=== PATIENT | female | born 1980 | race Caucasian/White ===

== ENCOUNTER 2019-11-08 00:16 | Emergency (ER) | payer SELFPAY ==
[2019-11-08] MEDS ORDERED: Acetaminophen/oxyCODONE 325-5 MG Tab PO ONE (00:17)
[2019-11-08] MEDS ORDERED: oxyCODONE 5 MG Tab PO ONE (00:32)
--- NOTE | 2019-11-08 00:39 | EDM.PDOC ---
ED HPI GENERAL MEDICAL PROBLEM - General Chief Complaint: ENT Problem Stated Complaint: TOOTH PAIN Time Seen by Provider: 11/08/19 00:20 Source of Information: Reports: Patient, Old Records History Limitations: Reports: No Limitations - History of Present Illness INITIAL COMMENTS - FREE TEXT/NARRATIVE: 39 yo female had a root canal Wednesday 11/07 in her dentist's office. When she left her mouth/face was numb. By the time it wore off she was in a lot of pain but the dentist's office was closed and there was no emergency number. She has tried ibuprofen, acetaminophen and tramadol without relief. She had been on antibiotics before the root canal procedure. Onset: Gradual Onset Date: 11/07/19 Duration: Hour(s):, Constant Location: Reports: Face (R cheek area/upper premolar) Quality: Reports: Ache Severity: Severe Improves with: Reports: Medication Worsens with: Reports: Other (cold/chewing) Context: Reports: Other (root canal) Associated Symptoms: Reports: Other (slight R cheek puffiness) Treatments MDS COORDINATOR: Reports: Acetaminophen, NSAIDS, Other (see below) (tramadol) - Related Data Allergies Allergy/AdvReac Type Severity Reaction Status Date / Time No Known Allergies Allergy Verified 11/07/14 11:27 Home Meds: Home Meds Fluticasone Propionate [Flonase Allergy Relief] 1 spray KOMAL DAILY 03/26/15 [ History] Levocetirizine Dihydrochloride [Xyzal] 5 mg PO DAILY 03/26/15 [History] Acetaminophen/oxyCODONE [Percocet 325-5 MG] 1 - 2 each PO QID PRN #14 tab [Rx] ED ROS ENT - Review of Systems Review Of Systems: See Below Constitutional: Reports: No Symptoms HEENT: Reports: Dental Pain Respiratory: Reports: No Symptoms Cardiovascular: Reports: No Symptoms GI/Abdominal: Reports: No Symptoms Skin: Reports: No Symptoms ED EXAM, ENT - Physical Exam Exam: See Below Exam Limited By: No Limitations General Appearance: Alert, WD/WN, No Apparent Distress Eye Exam: Bilateral Eye: Normal Inspection Ears: Normal External Exam, Normal Canal, Hearing Grossly Normal Nose: Normal Inspection, No Blood Mouth/Throat: Normal Lips, Normal Oropharynx, Dental Pain, Other (There is a temporary patch/filling over the tooth that had the root canal. ) Head: Atraumatic, Normocephalic Neck: Normal Inspection, Supple, Non-Tender, Full Range of Motion. No: Lymphadenopathy (R), Lymphadenopathy (L) Respiratory/Chest: No Respiratory Distress Cardiovascular: Regular Rate, Rhythm Neurological: Alert, Oriented, CN II-XII Intact, Normal Cognition, No Motor/ Sensory Deficits Psychiatric: Normal Affect, Normal Mood Skin: Warm, Dry, Intact, Normal Color, No Rash Course - Orders/Labs/Meds Meds: Medications Discontinued Medications Generic Name Dose Route Start Last Admin Trade Name Freq PRN Reason Stop Dose Admin Oxycodone HCl 5 mg 11/08/19 00:32 Oxycodone PO 11/08/19 00:33 ONETIME ONE Departure - Departure Time of Disposition: 00:50 Disposition: Home, Self-Care 01 Condition: Fair Clinical Impression: Pain, dental - Discharge Information *PRESCRIPTION DRUG MONITORING PROGRAM REVIEWED*: No *COPY OF PRESCRIPTION DRUG MONITORING REPORT IN PATIENT RENATE: No Prescriptions: Acetaminophen/oxyCODONE [Percocet 325-5 MG] 1 - 2 each PO QID PRN #14 tab PRN Reason: Pain Referrals: Usman Benitez MD [Primary Care Provider] - Forms: ED Department Discharge Additional Instructions: Continue ibuprofen 600 mg every 6 hrs with food for pain relief. Add acetaminophen up to 1000 mg every 6 hrs for mild pain OR Percocet 1-2 every 6 hrs for more severe pain. Avoid cold, hot or hard things in your mouth for now. Seek out dental care if possible to evaluate your pain problem further.
[2019-11-08 00:43] VITALS: BP 125/89; PULSE 71
== END 2019-11-08 00:58 | disposition home or self-care (01) ==
LOC: FB.ED 00:16
DX: K08.89 Other specified disorders of teeth and supporting structures (principal)
CPT/HCPCS: 99283; A9270-GY